=== PATIENT | male | born 1980 | race Two or more races ===

== ENCOUNTER 2021-07-03 02:36 | Emergency (ER) | payer BC ==
[~2021-07-03] VITALS: Ht 175.3 cm; Wt 54.4 kg
[2021-07-03] MEDS ORDERED: PEPCID AC20 MG PO (06:13)
== END 2021-07-03 06:28 | disposition home or self-care (01) ==
LOC: ER 02:36
DX: K52.9 Noninfective gastroenteritis and colitis, unspecified (principal)